=== PATIENT | female | born 2000 | race Caucasian/White ===

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

== ENCOUNTER 2023-11-01 14:45 | Emergency (ER) | payer SELFPAY ==
[2023-11-01 14:54] VITALS: BP 133/79; PULSE 75; RESP 18; TEMP 36.8; O2SAT 100; BMI 27.3
--- NOTE | 2023-11-01 15:14 | ED_ITS ---
Documented by User: Say Walton DO 11/02/23 05:56 HPI - Headache General: Chief Complaint: Headache Stated Complaint: headache,blurred vision,vomiting,neck pains Time Seen by Provider: 11/01/23 15:00 Source: patient Mode of arrival: ambulatory History of Present Illness: 23-year-old female presents to the [facility] room with complaint of occipital migraine radiating up into her neck which she has autophobia and photophobia as well as some nausea she has a history of irritable bowel and has had a lot of loose stools recently is not having hematochezia melena hematemesis or coffee- ground emesis. She denies any fever sweats or chills. She complains of neck pain but moves her head around without any difficulty or hesitation. She did have some visual disturbances with this as well. No fever sweats or chills no recent upper respiratory illness there is no recent rashes MD elicited complaint: headache Quality & Timing: sharp and constant Exacerbating factors: light and noise Relieving factors: rest and dark room Associated symptoms: Deny chest pain, confusion, cough, diaphoresis, eye pain, eye redness, fever(s), lightheadedness, loss of vision, malaise, nausea, neck stiffness, numbness, paresthesias, photophobia, pre-syncope, rash, seizures, short of breath, sound sensitivity, syncope, vomiting or weakness Treatments prior to arrival: none Review of Systems Const: Denies: fever(s), chills, malaise or diaphoresis Card: Denies: chest pain, lightheadedness, syncope or pre-syncope Resp: Denies: dyspnea GI: Denies: abdominal pain, nausea or vomiting : Denies: dysuria, urinary frequency or urinary urgency Musc: Denies: neck pain or back pain Skin/Breast: Denies: rash Neuro: Denies: confusion PFSH ED PFSH: Social History Smoking and tobacco/nicotine status: current every day tobacco/nicotine user Physical Exam Const: COMMON NORMALS: no acute distress GENERAL APPEARANCE: cooperative ORIENTATION/CONSCIOUSNESS: Yes awake, Yes oriented to person, Yes oriented to place and Yes oriented to time HENMT: COMMON NORMALS: normocephalic, atraumatic and hearing grossly normal bilaterally HEAD & SCALP: normocephalic and atraumatic Eye: DIRECT OPHTHALMOSCOPY: No photophobia Neck/C-Spine: OTHER: No meningeal signs Resp: COMMON NORMALS: normal respiratory effort, No retractions, No use of accessory muscles and clear to auscultation bilaterally AUSCULTATION: clear to auscultation bilaterally Cardio: COMMON NORMALS: regular rate, regular rhythm and No murmurs present (Cardio) RATE: regular rate RHYTHM: regular rhythm GI: COMMON NORMALS: Soft to palpation and No hepatosplenomegaly present AUSCULTATION: Yes normoactive bowel sounds PALPATION: Yes Soft to palpation, No Tenderness to palpation present (GI), No Guarding due to palpation present (GI) and Yes No hepatosplenomegaly present Extremity: COMMON NORMALS: normal to inspection, capillary refill normal, no clubbing, cyanosis or edema, no calf tenderness and no pedal edema Neuro: SENSORIUM/ORIENTATION: Yes oriented to person, Yes oriented to place and Yes oriented to time Skin: COMMON NORMALS: no rashes or lesions noted GENERAL SKIN EXAM: no rashes or lesions noted Course Vital Signs: Vital signs: Vital Signs Temperature 98.2 F 11/01/23 14:54 Pulse Rate 63 11/01/23 19:32 Respiratory Rate 16 11/01/23 19:32 Blood Pressure 133/84 11/01/23 19:32 Pulse Oximetry 98 11/01/23 19:32 Oxygen Delivery Me thod Room Air 11/01/23 14:54 MDM - Headache Medical Decision Making Patient initially received DHE Phenergan and ketorolac's minor improvement of headaches. Currently receiving another dose of DHE and Depakene. Care signed out to Dr. Wagoner at change of shift. See final notes for diagnosis and disposition. I took patient over from Dr. Gallo patient presents with a headaches likely migraine headache she feels improved here she has no signs of meningitis or subarachnoid hemorrhage. She is stable for discharge she is follow-up with PCP and return if worsening she understands agrees to plan. Discharge Plan Discharge Patient Disposition: Home Clinical Impression: Headache Qualifiers: Headache type: unspecified Headache chronicity pattern: unspecified pattern Intractability: not intractable Qualified Code(s): R51.9 - Headache, unspecified Condition: Stable Prescriptions: No Action Sprintec (28) 0.25-35 mg-mcg Tablet 1 tab PO DAILY dicyclomine 20 mg Tablet 20 mg PO QID naproxen 500 mg tablet 500 mg PO Q12H PRN (Reason: pain) Qty: 20 0RF Discharge Orders: Discharge ED (Routine); Ordered 11/01/23 Ordered By: Jessica Wagoner Referrals: Christi Welsh MD [Primary Care Provider] - 1-3 days Discharge Diet: Advance as tolerated Discharge Activity: Resume usual activity Patient Instructions: Acute Headache (ED) Stand Alone Forms: Work/School Release Coding Level 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 [employer] Documented by User: Jessica Wagoner MD 11/01/23 19:18 HPI - Headache General: Chief Complaint: Headache Stated Complaint: headache,blurred vision,vomiting,neck pains Time Seen by Provider: 11/01/23 15:00 PFSH ED PFSH: Social History Smoking and tobacco/nicotine status: current every day tobacco/nicotine user Course Vital Signs: Vital signs: Vital Signs Temperature 98.2 F 11/01/23 14:54 Pulse Rate 63 11/01/23 19:32 Respiratory Rate 16 11/01/23 19:32 Blood Pressure 133/84 11/01/23 19:32 Pulse Oximetry 98 11/01/23 19:32 Oxygen Delivery Me thod Room Air 11/01/23 14:54 MDM - Headache Medical Decision Making I took patient over from Dr. Gallo patient presents with a headaches likely migraine headache she feels improved here she has no signs of meningitis or subarachnoid hemorrhage. She is stable for discharge she is follow-up with PCP and return if worsening she understands agrees to plan. Medical Records I reviewed the patient's medical records. No radiology studies performed this visit Discharge Plan Discharge Patient Disposition: Home Clinical Impression: Headache Qualifiers: Headache type: unspecified Headache chronicity pattern: unspecified pattern Intractability: not intractable Qualified Code(s): R51.9 - Headache, unspecified Condition: Stable Prescriptions: No Action Sprintec (28) 0.25-35 mg-mcg Tablet 1 tab PO DAILY dicyclomine 20 mg Tablet 20 mg PO QID naproxen 500 mg tablet 500 mg PO Q12H PRN (Reason: pain) Qty: 20 0RF Discharge Orders: Discharge ED (Routine); Ordered 11/01/23 Ordered By: Jessica Wagoner Referrals: Christi Welsh MD [Primary Care Provider] - 1-3 days Discharge Diet: Advance as tolerated Discharge Activity: Resume usual activity Patient Instructions: Acute Headache (ED) Stand Alone Forms: Work/School Release Coding Level of Care Code ED 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
[2023-11-01] MEDS: dihydroergotamine 1 mg/mL Inj IVP ×2 (15:25→18:15)
[2023-11-01] MEDS: promethazine 25 mg/mL SDV 1 mL IM (15:28)
[2023-11-01] MEDS: ketorolac 30 mg/mL INJ IVP (15:29)
[2023-11-01] MEDS: sodium chloride 0.9% 1,000 ML 999 ML IV (15:30)
[2023-11-01] MEDS: valproic acid inj 500 MG in sodium chloride 0.9% 50 ML 55 MG IV (18:20)
[2023-11-01] MEDS: morphine 4 mg/mL SDV 1 mL IVP (18:24)
[2023-11-01] MEDS: diphenhydrAMINE 50 mg/mL SDV 1mL 25 MG IVP (19:00)
[2023-11-01] MEDS: metoclopramide 5 mg/mL SDV 2 mL IVP (19:02)
[2023-11-01 19:32] VITALS: BP 133/84; PULSE 63; RESP 16; O2SAT 98
== END 2023-11-01 19:37 | disposition home or self-care (01) ==
PROVIDERS: Emergency Provider Emergency Medicine; PCP Internal Medicine
DX: R51.9 Headache, unspecified (principal); Z72.0 Tobacco use
CPT/HCPCS: 96372; 96374; 96375; 96376; 99284; J1110; J1200; J1885; J2270; J2550; J2765; J3490; J7030